=== PATIENT | male | born 1950 | race Caucasian/White ===

== ENCOUNTER 2021-07-12 09:37 | Inpatient (IN) | payer MEDICARE, OTHER ==
[~2021-07-12] VITALS: Ht 182.9 cm; Wt 136.1 kg
[~2021-07-12 09:37] MED LIST: APIDRA SUBQ; FLEXERIL PO; IBUPROFEN 200200 M1 PO; LANTUS SUBQ; LEVEMIR SUBQ; LISINOPRIL10 MG PO; METFORMIN HCL500 MG PO; NIFEDIPINE ER30 M1 PO; NORCO5 PO; PRINIVIL40 MG PO; XALATAN2.5 ML OPHTHALMIC; XARELTO10 MG PO; ZOCOR 10 MG TAB10 MG PO; ZOCOR20 MG PO
[2021-07-12 09:47] VITALS: BP 142/84
[2021-07-12 11:54] LABS: ABSOLUTE EOSINOPHILS 0.2 thou/uL (0.0-0.7); ABSOLUTE MONOCYTES 0.5 thou/uL (0.0-1.2); ABSOLUTE NEUTROPHILS 4.1 thou/uL (1.6-8.1); BASOPHILS 0.5 %; EOSINOPHILS 3.5 %; HEMOGLOBIN 14.5 gm/dL (14.0-18.0); LYMPHOCYTES 17.9 %; MCH 30.4 pg (26.0-34.0); MCHC 33.7 g/dL (28.0-37.0); MCV 90.2 fL (80.0-100.0); MONOCYTES 8.1 %; MPV 8.6 fl. (7.2-11.1); NUCLEATED RBCS 0 /100WBC; PLATELET COUNT* 207 thou/uL (150-400); RBC 4.77 mil/uL (4.50-6.00); WBC 5.8 thou/uL (4.0-11.0)
[2021-07-12 12:04] LABS: CALCIUM 9.2 mg/dL (8.5-10.1); CREATININE 1.3 mg/dL (0.6-1.3); POTASSIUM 4.8 mmol/L (3.5-5.1)
[2021-07-12 12:14] LABS: ALBUMIN 3.8 g/dL (3.4-5.0); TOTAL BILIRUBIN 0.5 mg/dL (<0.1-1.0); TOTAL PROTEIN 7.4 g/dL (6.4-8.2)
--- NOTE | 2021-07-12 12:53 | EKG ---
[place] [address] ELECTROCARDIOGRAM REPORT Name: NICOLAS BUSTILLO Room: [place] [address] ADM IN [facility]#: [id number] Admission: 07/12/21 Attend Phys: Jose Luis Martinez Discharge: Date of : 50 Date of Service: 07/12/21 1138 Report #: [id number] THIS REPORT FOR: //name// [facility] ED Test Date: 2021-07-12 Test Time: 11:38:38 Pat Name: NICOLAS BUSTILLO Department: Room: [facility] Gender: M Head Chef: BISHOP : 1950 Requested By: Enoch Martin Order Number: [id number] MD: Jean Dunn Measurements Intervals [place] Rate: 74 P: 44 AK: 205 QRS: 7 QRSD: 96 T: -4 QT: 455 QTc: 505 Interpretive Statements Sinus rhythm Atrial premature complex Probable anterior infarct, old Borderline T abnormalities, inferior leads Prolonged QT interval Compared to ECG 09/05/2014 06:18:20 Myocardial infarct finding now present Prolonged QT interval now present Electronically Signed On 07-12-2021 12:52:34 CDT by Jean Dunn [email or web address] <ELECTRONICALLY SIGNED> By: Jean Dunn MD, FAC 07/12/21 1252 1138 1138 Jean Dunn MD, FAC /EPI
[2021-07-12 15:10] VITALS: BP 153/83
[2021-07-12 15:11] VITALS: BP 153/86
[2021-07-12 19:30] VITALS: BP 140/69
[2021-07-13] VITALS: BP 168/75
[2021-07-13 04:00] VITALS: BP 169/71
[2021-07-13 04:21] LABS: HEMATOCRIT 38.3 % (42.0-52.0); HEMOGLOBIN 13.2 gm/dL (14.0-18.0); MCH 30.9 pg (26.0-34.0); MCHC 34.4 g/dL (28.0-37.0); MCV 89.9 fL (80.0-100.0); MPV 8.6 fl. (7.2-11.1); RBC 4.26 mil/uL (4.50-6.00); RDW-CV 14.2 % (10.5-14.5); WBC 8.8 thou/uL (4.0-11.0)
[2021-07-13 04:25] LABS: APTT 22.5 Seconds (25.0-31.3); PROTIME 10.6 Seconds (9.20-11.50)
[2021-07-13 04:27] LABS: CALCIUM 8.5 mg/dL (8.5-10.1); CREATININE 1.2 mg/dL (0.6-1.3); POTASSIUM 4.9 mmol/L (3.5-5.1)
[2021-07-13 07:56] VITALS: BP 160/97
[2021-07-13 20:59] VITALS: BP 161/79
[2021-07-14] VITALS: BP 170/75
[2021-07-14 04:08] VITALS: BP 155/68
[2021-07-14 11:22] VITALS: BP 139/69
[2021-07-14 12:30] VITALS: BP 139/69
--- NOTE | 2021-07-16 21:08 | CON ---
[address] [address] CONSULTATION Name: NICOLAS BUSTILLO Room: [address] IN .R.#: [id number] Admission: 07/12/21 Attend Phys: Bolivar Noble Discharge: 07/14/21 Date of : 50 Report #: [id number] THIS REPORT FOR: cc: Kobe Snell John E. DO Greiner, Robert F. II DO ~ DATE OF CONSULTATION: 07/13/2021 ORTHOPEDIC CONSULTATION CHIEF COMPLAINT: Left distal radius fracture. HISTORY OF PRESENT ILLNESS: The patient is a 70-year-old male with multiple history of diabetes, hypertension, hyperlipidemia as well as skin cancer, presented to the ER after a mechanical fall. He was trying to retrieve his pet from outside when he fell landing on his left arm in his driveway; pain is lasting throughout most of the afternoon and evening and is improved with pain medication; does have a scrape on the ulnar side. The patient states that located mainly in the left wrist. REVIEW OF SYSTEMS: A 14-point review of systems was obtained and negative except for pertinent positives in the HPI. FAMILY HISTORY: Reviewed and noncontributory to HPI. SOCIAL HISTORY: The patient denies tobacco, alcohol or drug use. MEDICATIONS: Listed in chart. ALLERGIES: The patient denies. PHYSICAL EXAMINATION: VITAL SIGNS: Pulse 71, respirations 16, blood pressure 142/79. Patient is alert and oriented, in moderate distress. EYES: PERRLA. EOMI. HEENT: Normocephalic. Moist mucous membranes. Throat is midline. NECK: Supple, nontender, no JVD. RESPIRATORY: Lungs are clear to auscultation. Equal breath sounds. CARDIAC: Normal rate and rhythm. GASTROINTESTINAL: Patient soft, nontender, nondistended. GENITOURINARY: No CVA tenderness. LYMPHATICS: No lymphadenopathy in the neck, axilla, or groin. SKIN: The patient does have a scratch around the left wrist with obvious deformity. He has also a scratch on the left nostril [place] [address] CONSULTATION Name: NICOLAS BUSTILLO Room: [address]#: [id number] Admission: 07/12/21 Attend Phys: Bolivar Noble Discharge: 07/14/21 Date of : 50 Report #: [id number] MUSCLE: The patient has tenderness at the wrist. Limited finger range of motion. The patient does state some sensitivity decrease in the hand due to his injury. The patient is able to move the fingers minimally due to extreme pain within the wrist and deformity. NEUROLOGIC: The patient is alert and oriented other than extreme swelling and pain within the left hand as well as some tingling in the fingers. PSYCHIATRIC: Patient is cooperative, appropriate mood and affect. RADIOLOGIC EXAM: The patient's left distal radius fracture does show a comminuted intraarticular involvement with multiple pieces as well as the severe deformity. No evidence of open fracture. CT of the head is normal. No acute intracranial process, possible nasal fracture of uncertain chronicity. LABORATORY DATA: Potassium 4.8, chloride 103, carbon dioxide 29, BUN 16, creatinine 1.3, sodium 135, hemoglobin 14.5, hematocrit 43 and platelets 207. IMPRESSION: 1. Left distal radius fracture with deformity and comminution. 2. Diabetes type 2. 3. Hypertension. 4. Hyperlipidemia. PLAN: At this time, the patient was under medical care throughout the evening is cleared for surgery. The patient has been n.p.o. I have discussed with the patient risks, benefits, complications, indications of the surgery including but not limited to , heart attack, stroke, infection, blood clot, pulmonary embolus as well as pulmonary edema and the risk of neurovascular compromise. The patient has elected to proceed. I appreciate this consultation. <ELECTRONICALLY SIGNED> By: Phu Juarez II, DO 07/16/212107 41 [id number] Juarez II, DO /nt
--- NOTE | 2021-07-16 21:08 | OP ---
[address] [address] OPERATIVE REPORT Name: NICOLAS BUSTILLO Room: [address] IN .R.#: [id number] Admission: 07/12/21 Attend Phys: Bolivar Noble Discharge: 07/14/21 Date of : 50 Report #: [id number] THIS REPORT FOR: cc: Kobe Snell John E. DO Greiner, Robert F. II DO ~ DATE OF SURGERY: 07/13/2021 PREOPERATIVE DIAGNOSIS: Left distal radius fracture, greater than 3 parts with intra-articular involvement. POSTOPERATIVE DIAGNOSIS: Left distal radius fracture, greater than 3 parts with intraarticular involvement. PROCEDURE PERFORMED: Open reduction internal fixation of left distal radius fracture, greater than 3 parts. SURGEON: Phu Juarez II, DO. KETTLE COORDINATOR: JASON Owens. ANESTHESIA: Per operative record. ESTIMATED BLOOD LOSS: 5 mL. ANTIBIOTICS: Per operative record. DRAINS: None. COMPLICATIONS: None. CONDITION: The patient stable to recovery room. IMPLANTS: A Sayner distal radius locking plate with appropriate screws. OPERATIVE PROCEDURE: The patient was taken to the operative suite, placed supine on the operating table, given appropriate anesthesia. The patient had a well-padded tourniquet applied to the impacted upper extremity, which was inflated to 250 mmHg after Esmarch exsanguination for duration of procedure. It was sterilely prepped and draped. Surgery began by an incision over the FCR tendon. This was carried down to subcutaneous tissues. The distal radius fracture was visualized with fluoroscopic evaluation and open reduced in near anatomic fashion. It was held with K-wires in multiple directions. The distal radius plate was then placed on the volar aspect of the radius and secured through the sliding hole as well as through the pin holes and appropriate nonlocking and locking screws were then placed [place] [address] OPERATIVE REPORT Name: LAKHWINDER BUSTILLOE Carlos Room: [address]#: [id number] Admission: 07/12/21 Attend Phys: Bolivar Noble Discharge: 07/14/21 Date of : 50 Report #: [id number] fluoroscopic guidance. The fracture was well reduced in near anatomic fashion. This was then visualized in both AP and lateral directions to be in excellent anatomic alignment. Irrigation was then performed of the wound. The wound was then closed with Vicryl and Monocryl in running fashion. Sterile dressing, splint and Dermabond were applied. The patient transported to recovery in stable condition. Counts were correct throughout the procedure. <ELECTRONICALLY SIGNED> By: Phu Juarez II, DO 07/16/21 2108 24 2043Phu Juarez II, DO /nt
== END 2021-07-14 15:35 | disposition home or self-care (01) | DRG 511 ==
LOC: M.ERS 09:37 → M.3W 12:03 → M.TBA-ER 12:03 → M.2W 15:06 → M.3W 07-13 07:51
PROVIDERS: Family Medicine; Internal Medicine; ADMIT Internal Medicine; ATTEND Internal Medicine
PROC: 0PSJ04Z Reposition Left Radius with Internal Fixation Device, Open Approach (ICD-10-PCS; principal; 2021-07-13)
DX: S52.572B Other intraarticular fracture of lower end of left radius, initial encounter for open fracture type I or II (principal); Z68.41 Body mass index [BMI] 40.0-44.9, adult; E66.01 Morbid (severe) obesity due to excess calories; E11.9 Type 2 diabetes mellitus without complications; I10 Essential (primary) hypertension; E78.00 Pure hypercholesterolemia, unspecified; E78.5 Hyperlipidemia, unspecified; S02.2XXA Fracture of nasal bones, initial encounter for closed fracture; Z20.822 Contact with and (suspected) exposure to COVID-19; W18.39XA Other fall on same level, initial encounter; Y93.89 Activity, other specified; Y92.89 Other specified places as the place of occurrence of the external cause; Y99.8 Other external cause status